=== PATIENT | female | born 1935 | race Caucasian/White ===

== ENCOUNTER 2017-08-29 09:42 | Inpatient (IN) | payer MEDICARE, OTHER ==
[~2017-08-29] VITALS: Ht 162.6 cm; Wt 102.1 kg
[2017-08-29] VITALS (15 sets, daily range): BP systolic 117–134; BP diastolic 57–75
[2017-08-29] MEDS ORDERED: IOPAMIDOL-370 100 ML VIAL IV ONE (10:46)
[2017-08-29] MEDS ORDERED: BIVALIRUDIN 250 MG/VIAL IV ONE (10:46)
[2017-08-29] MEDS ORDERED: LIDOCAINE PF 2% 5ML ABBOJECT ONE (10:46)
[2017-08-29] MEDS ORDERED: FENTANYL CITRATE PF 50 MCG/1 ML 2ML VIAL ONE (10:47)
[2017-08-29] MEDS ORDERED: MIDAZOLAM HCL 1 MG/ML 2ML VIAL ONE (10:47)
[2017-08-29] MEDS ORDERED: IOPAMIDOL-370 75 ML VIAL IV ONE (10:47)
[2017-08-29] MEDS ORDERED: LIDOCAINE HCL 2% 20ML ONE (10:48)
[2017-08-29] MEDS ORDERED: DOPAMINE HCL 400 MG/D5%-WATER 0 ML IV ONE (10:48)
[2017-08-29] MEDS ORDERED: CALC-1174 PO (11:09)
[2017-08-29] MEDS ORDERED: HUM10VIA6 SQ ×2 (11:09)
[2017-08-29] MEDS ORDERED: AMLO5TAB2 PO (11:09)
[2017-08-29] MEDS ORDERED: b12 PO (11:09)
[2017-08-29] MEDS ORDERED: ASPI-555 PO (11:09)
[2017-08-29] MEDS ORDERED: FURO20TA4 PO (11:09)
[2017-08-29] MEDS ORDERED: ATOR20TA65 PO (11:09)
[2017-08-29] MEDS ORDERED: LOSA100T29 PO (11:09)
[2017-08-29] MEDS ORDERED: CARV6.25 PO (11:09)
[2017-08-29] MEDS ORDERED: OMEP20CA10 PO (11:09)
[2017-08-29] MEDS ORDERED: FUROSEMIDE 10 MG/ML 4ML VIAL ONE ×2 (11:18)
[2017-08-29] MEDS ORDERED: MORPHINE SULFATE 10 MG/ML 1ML SYG ONE (11:20)
[2017-08-29] MEDS ORDERED: NITROGLYCERIN 50 MG/D5% WATER 250 BOT IV PRN (11:45)
[2017-08-29] MEDS ORDERED: HEPARIN 25000 UNITS/250 ML D5W 250 ML IV PRN (11:45)
[2017-08-29] MEDS ORDERED: GUAIFENESIN-DM 200/20 MG 10 ML PO PRN (13:45)
[2017-08-29] MEDS ORDERED: HYDRALAZINE HCL 20 MG/ML VIAL IV PRN (13:45)
[2017-08-29] MEDS ORDERED: MORPHINE SULFATE 2 MG/ML 1ML SYG IV PRN (13:45)
[2017-08-29] MEDS ORDERED: ACETAMINOPHEN-CODEINE 300/30MG TAB PO PRN ×2 (13:45)
[2017-08-29] MEDS ORDERED: LACTULOSE 20 GM/30 ML UDCUP PO PRN (13:45)
[2017-08-29] MEDS ORDERED: POTASSIUM CHLORIDE 20MEQ/100ML 100 ML IV PRN (13:45)
[2017-08-29] MEDS ORDERED: NITROGLYCERIN 0.4 MG SL TAB SL PRN (13:45)
[2017-08-29] MEDS ORDERED: MORPHINE SULFATE 4 MG/1ML SYG IV PRN (13:45)
[2017-08-29] MEDS ORDERED: LIDOCAINE HCL-MPF 1% 2ML VIAL IVP PRN (13:45)
[2017-08-29] MEDS ORDERED: ONDANSETRON HCL 4 MG/2 ML VIAL IV PRN (13:45)
[2017-08-29] MEDS ORDERED: ACETAMINOPHEN 325 MG TAB PO PRN ×2 (13:45)
[2017-08-29] MEDS ORDERED: POTASSIUM CHLORIDE 10% ELIXIR 20 MEQ/15 ML UDCUP PO PRN (13:45)
[2017-08-29] MEDS ORDERED: MAG HYDROX/AL HYDROX/SIMETH ES 30 ML SUSP UDCUP PO PRN (13:45)
[2017-08-29] MEDS ORDERED: INSULIN HUMULIN 70/30 100 UNIT/ML 3ML SQ SCH (16:30)
[2017-08-29] MEDS: INSULIN HUMULIN R 100 UNIT/ML 3ML SQ SCH ×2 (16:31→22:18)
[2017-08-29] MEDS: IPRATROPIUM 0.5 MG/2.5 ML INH IH SCH (18:05)
[2017-08-29] MEDS: TICAGRELOR 90 MG TABLET PO SCH (22:03)
[2017-08-29] MEDS: FAMOTIDINE/PF 20 MG/2 ML VIAL IV SCH (22:03)
[2017-08-29] MEDS: FUROSEMIDE 10 MG/ML 4ML VIAL IVP SCH (22:03)
[2017-08-29] MEDS: ATORVASTATIN CALCIUM 20 MG TABLET PO SCH (22:05)
[2017-08-29] MEDS: CARVEDILOL 6.25 MG TABLET PO SCH (22:05)
[2017-08-30] VITALS (24 sets, daily range): BP systolic 101–145; BP diastolic 45–82
[2017-08-30] MEDS: IPRATROPIUM 0.5 MG/2.5 ML INH IH SCH ×4 (00:38→17:58)
[2017-08-30 04:00] LABS: CREATININE 1.1 mg/dL (0.5-1.5); POTASSIUM 3.7 mmol/L (3.5-5.1)
[2017-08-30 05:38] LABS: MEAN CORPUSCULAR HEMOGLOBIN 29.4 pg (27.0-33.0); MEAN CORPUSCULAR HGB CONC 33.6 g/dL (32.0-36.0); MEAN CORPUSCULAR VOLUME 87.5 fL (79-99); PLATELET COUNT (AUTO) 228 K/uL (130-400); RED BLOOD CELL COUNT(AUTO) 4.11 MIL/uL (4.00-5.50); RED CELL DISTRIBUTION WIDTH 14.4 % (11.0-15.5)
[2017-08-30 06:14] LABS: B-TYPE NATRIURETIC PEPTIDE 1060 pg/mL (0-100)
[2017-08-30] MEDS ORDERED: LISINOPRIL 10 MG TABLET PO SCH (09:00)
[2017-08-30] MEDS: INSULIN HUMULIN R 100 UNIT/ML 3ML SQ SCH ×4 (09:00→21:00)
[2017-08-30] MEDS: INSULIN HUMULIN 70/30 100 UNIT/ML 3ML SQ SCH ×2 (09:01→17:21)
[2017-08-30] MEDS: TICAGRELOR 90 MG TABLET PO SCH ×2 (09:02→21:07)
[2017-08-30] MEDS: ASPIRIN 81MG TAB.CHEW PO SCH (09:02)
[2017-08-30] MEDS: CARVEDILOL 6.25 MG TABLET PO SCH ×2 (09:02→21:11)
[2017-08-30] MEDS: FAMOTIDINE/PF 20 MG/2 ML VIAL IV SCH ×2 (09:02→21:06)
[2017-08-30] MEDS: FUROSEMIDE 10 MG/ML 4ML VIAL IVP SCH ×2 (09:05→21:07)
[2017-08-30 11:37] LABS: HEMOGLOBIN A1C 6.3 % (4.0-6.0)
[2017-08-30 11:54] LABS: CREATINE KINASE MB 79.1 ng/mL (0.5-3.6)
[2017-08-30 11:59] LABS: TROPONIN I 24.77 ng/mL (0.00-0.06)
[2017-08-30] MEDS: ISOSORBIDE MONO 60 MG TAB.SR PO SCH (12:24)
[2017-08-30] MEDS: ATORVASTATIN CALCIUM 20 MG TABLET PO SCH (21:07)
[2017-08-30] MEDS: LISINOPRIL 10 MG TABLET PO SCH (21:08)
[2017-08-30] MEDS: ENOXAPARIN SODIUM 100 MG/1 ML SQ SCH (21:12)
[2017-08-31] VITALS (14 sets, daily range): BP systolic 93–122; BP diastolic 41–77
[2017-08-31] MEDS: IPRATROPIUM 0.5 MG/2.5 ML INH IH SCH ×4 (01:22→19:48)
[2017-08-31 03:35] LABS: HEMATOCRIT 34.1 % (36-48); MEAN CORPUSCULAR HEMOGLOBIN 29.3 pg (27.0-33.0); MEAN CORPUSCULAR HGB CONC 33.1 g/dL (32.0-36.0); MEAN CORPUSCULAR VOLUME 88.4 fL (79-99); PLATELET COUNT (AUTO) 212 K/uL (130-400); RED BLOOD CELL COUNT(AUTO) 3.86 MIL/uL (4.00-5.50); RED CELL DISTRIBUTION WIDTH 14.4 % (11.0-15.5); WHITE BLOOD COUNT (AUTO) 12.7 K/uL (4.8-10.8)
[2017-08-31 03:47] LABS: CREATININE 1.1 mg/dL (0.5-1.5); POTASSIUM 3.5 mmol/L (3.5-5.1)
[2017-08-31 03:55] LABS: B-TYPE NATRIURETIC PEPTIDE 348 pg/mL (0-100)
[2017-08-31] MEDS: INSULIN HUMULIN R 100 UNIT/ML 3ML SQ SCH ×4 (07:30→21:00)
[2017-08-31] MEDS: ISOSORBIDE MONO 60 MG TAB.SR PO SCH (08:53)
[2017-08-31] MEDS: TICAGRELOR 90 MG TABLET PO SCH ×2 (08:53→22:37)
[2017-08-31] MEDS: ASPIRIN 81MG TAB.CHEW PO SCH (08:53)
[2017-08-31] MEDS: INSULIN HUMULIN 70/30 100 UNIT/ML 3ML SQ SCH ×2 (08:53→17:16)
[2017-08-31] MEDS: CARVEDILOL 6.25 MG TABLET PO SCH ×2 (08:54→21:00)
[2017-08-31] MEDS: LISINOPRIL 10 MG TABLET PO SCH (08:54)
[2017-08-31] MEDS: FAMOTIDINE/PF 20 MG/2 ML VIAL IV SCH ×2 (08:58→22:37)
[2017-08-31] MEDS: FUROSEMIDE 10 MG/ML 4ML VIAL IVP SCH (08:58)
[2017-08-31] MEDS: ENOXAPARIN SODIUM 100 MG/1 ML SQ SCH ×2 (08:59→22:39)
[2017-08-31] MEDS: FUROSEMIDE 40 MG TABLET PO SCH (17:00)
[2017-08-31] MEDS ORDERED: LISINOPRIL 5 MG TABLET PO SCH (21:00)
[2017-08-31] MEDS: LISINOPRIL 5 MG TABLET PO SCH (21:00)
[2017-08-31] MEDS ORDERED: CARVEDILOL 12.5 MG TABLET PO SCH (21:00)
[2017-08-31] MEDS: ATORVASTATIN CALCIUM 20 MG TABLET PO SCH (22:38)
[2017-09-01] MEDS: IPRATROPIUM 0.5 MG/2.5 ML INH IH SCH ×4 (00:51→19:11)
[2017-09-01 03:59] VITALS: BP 114/63
[2017-09-01 05:00] LABS: MEAN CORPUSCULAR HGB CONC 33.9 g/dL (32.0-36.0); MEAN CORPUSCULAR VOLUME 88.4 fL (79-99); PLATELET COUNT (AUTO) 210 K/uL (130-400); RED BLOOD CELL COUNT(AUTO) 3.62 MIL/uL (4.00-5.50); RED CELL DISTRIBUTION WIDTH 14.5 % (11.0-15.5)
[2017-09-01 05:06] LABS: CREATININE 1.2 mg/dL (0.5-1.5); POTASSIUM 3.3 mmol/L (3.5-5.1)
[2017-09-01] MEDS: POTASSIUM CHLORIDE 20 MEQ ERTAB PO PRN ×3 (05:40→12:50)
[2017-09-01] MEDS: INSULIN HUMULIN R 100 UNIT/ML 3ML SQ SCH ×4 (05:58→21:00)
[2017-09-01] MEDS: INSULIN HUMULIN 70/30 100 UNIT/ML 3ML SQ SCH ×2 (06:26→17:52)
[2017-09-01 07:44] VITALS: BP 122/51
[2017-09-01] MEDS: LISINOPRIL 5 MG TABLET PO SCH ×2 (10:04→21:05)
[2017-09-01] MEDS: ASPIRIN 81MG TAB.CHEW PO SCH (10:04)
[2017-09-01] MEDS: ISOSORBIDE MONO 60 MG TAB.SR PO SCH (10:04)
[2017-09-01] MEDS: FAMOTIDINE/PF 20 MG/2 ML VIAL IV SCH ×2 (10:04→21:06)
[2017-09-01] MEDS: CARVEDILOL 6.25 MG TABLET PO SCH ×2 (10:05→21:06)
[2017-09-01] MEDS: FUROSEMIDE 40 MG TABLET PO SCH ×2 (10:05→17:51)
[2017-09-01 11:47] VITALS: BP 94/55
[2017-09-01 16:48] VITALS: BP 106/60
[2017-09-01 19:30] VITALS: BP 121/59
[2017-09-01] MEDS: ATORVASTATIN CALCIUM 20 MG TABLET PO SCH (21:06)
[2017-09-01 23:32] VITALS: BP 99/49
[2017-09-02] MEDS: IPRATROPIUM 0.5 MG/2.5 ML INH IH SCH ×4 (00:36→19:54)
[2017-09-02 03:57] VITALS: BP 102/50
[2017-09-02 04:46] LABS: POTASSIUM 3.5 mmol/L (3.5-5.1)
[2017-09-02] MEDS: POTASSIUM CHLORIDE 20 MEQ ERTAB PO PRN ×2 (05:42→11:09)
[2017-09-02] MEDS: INSULIN HUMULIN R 100 UNIT/ML 3ML SQ SCH ×4 (06:25→21:00)
[2017-09-02] MEDS: INSULIN HUMULIN 70/30 100 UNIT/ML 3ML SQ SCH ×2 (06:31→16:47)
[2017-09-02 07:45] VITALS: BP 123/51
[2017-09-02] MEDS: FAMOTIDINE/PF 20 MG/2 ML VIAL IV SCH ×2 (09:56→22:21)
[2017-09-02] MEDS: FUROSEMIDE 40 MG TABLET PO SCH ×2 (09:57→16:47)
[2017-09-02] MEDS: ASPIRIN 81MG TAB.CHEW PO SCH (09:57)
[2017-09-02] MEDS: CARVEDILOL 6.25 MG TABLET PO SCH ×2 (09:57→22:22)
[2017-09-02] MEDS: LISINOPRIL 5 MG TABLET PO SCH ×2 (09:57→22:21)
[2017-09-02] MEDS: ISOSORBIDE MONO 60 MG TAB.SR PO SCH (09:58)
[2017-09-02] MEDS: ENOXAPARIN SODIUM 40 MG/0.4 ML SYRINGE SQ SCH (10:31)
[2017-09-02 11:31] VITALS: BP 96/57
[2017-09-02 16:30] VITALS: BP 95/57
[2017-09-02 19:44] VITALS: BP 137/59
[2017-09-02] MEDS: ATORVASTATIN CALCIUM 20 MG TABLET PO SCH (22:21)
[2017-09-02 23:38] VITALS: BP 99/49
[2017-09-03] MEDS: IPRATROPIUM 0.5 MG/2.5 ML INH IH SCH ×3 (01:06→11:15)
[2017-09-03 03:54] VITALS: BP 92/59
[2017-09-03 04:48] LABS: CREATININE 1.1 mg/dL (0.5-1.5); POTASSIUM 3.9 mmol/L (3.5-5.1)
[2017-09-03] MEDS ORDERED: POTASSIUM CHLORIDE 10 MEQ/TAB.SA PO ONE ×4 (05:10→06:02)
[2017-09-03] MEDS: INSULIN HUMULIN R 100 UNIT/ML 3ML SQ SCH ×2 (05:54→11:30)
[2017-09-03] MEDS: INSULIN HUMULIN 70/30 100 UNIT/ML 3ML SQ SCH (06:11)
[2017-09-03 07:39] VITALS: BP 109/56
[2017-09-03] MEDS ORDERED: Isosorbide Mono 60 Mg Tab.sr PO (08:01)
[2017-09-03] MEDS ORDERED: FURO40TA7 PO (08:01)
[2017-09-03] MEDS: FAMOTIDINE/PF 20 MG/2 ML VIAL IV SCH (09:34)
[2017-09-03] MEDS: LISINOPRIL 5 MG TABLET PO SCH (09:34)
[2017-09-03] MEDS: ASPIRIN 81MG TAB.CHEW PO SCH (09:34)
[2017-09-03] MEDS: CARVEDILOL 6.25 MG TABLET PO SCH (09:34)
[2017-09-03] MEDS: ISOSORBIDE MONO 60 MG TAB.SR PO SCH (09:34)
[2017-09-03] MEDS: ENOXAPARIN SODIUM 40 MG/0.4 ML SYRINGE SQ SCH (09:35)
[2017-09-03] MEDS: FUROSEMIDE 40 MG TABLET PO SCH (09:35)
[2017-09-03 11:26] VITALS: BP 108/58
== END 2017-09-03 13:20 | disposition home or self-care (01) | DRG 280 ==
LOC: 2CH 10:40 → 2BH 17:46 → 2AH 08-31 13:00
PROVIDERS: ADMIT Internal Medicine; ATTEND Internal Medicine
PROC: 5A09357 Assistance with Respiratory Ventilation, Less than 24 Consecutive Hours, Continuous Positive Airway Pressure (ICD-10-PCS; 2017-08-29)
PROC: B2111ZZ Fluoroscopy of Multiple Coronary Arteries using Low Osmolar Contrast (ICD-10-PCS; principal; 2017-08-30)
PROC: B2151ZZ Fluoroscopy of Left Heart using Low Osmolar Contrast (ICD-10-PCS; 2017-08-30)
PROC: 4A023N7 Measurement of Cardiac Sampling and Pressure, Left Heart, Percutaneous Approach (ICD-10-PCS; 2017-08-30)
DX: I21.19 ST elevation (STEMI) myocardial infarction involving other coronary artery of inferior wall (principal); I50.43 Acute on chronic combined systolic (congestive) and diastolic (congestive) heart failure; J96.00 Acute respiratory failure, unspecified whether with hypoxia or hypercapnia; I13.0 Hypertensive heart and chronic kidney disease with heart failure and stage 1 through stage 4 chronic kidney disease, or unspecified chronic kidney disease; I25.10 Atherosclerotic heart disease of native coronary artery without angina pectoris; E11.22 Type 2 diabetes mellitus with diabetic chronic kidney disease; E66.01 Morbid (severe) obesity due to excess calories; E11.65 Type 2 diabetes mellitus with hyperglycemia; E78.5 Hyperlipidemia, unspecified; I25.5 Ischemic cardiomyopathy; J45.909 Unspecified asthma, uncomplicated; M19.90 Unspecified osteoarthritis, unspecified site; N18.9 Chronic kidney disease, unspecified; R04.0 Epistaxis; Z96.653 Presence of artificial knee joint, bilateral; I25.2 Old myocardial infarction; Z79.4 Long term (current) use of insulin; Z79.82 Long term (current) use of aspirin; Z79.899 Other long term (current) drug therapy; Z86.73 Personal history of transient ischemic attack (TIA), and cerebral infarction without residual deficits; Z68.38 Body mass index [BMI] 38.0-38.9, adult; Z91.040 Latex allergy status; Z91.048 Other nonmedicinal substance allergy status
CPT/HCPCS: 36415; 71045; 80048; 82550; 82553; 82948; 83036; 83874; 83880; 84484; 85027; 85730; 93005; 93458; 94640; 94660; 94664; A4344; C1894; J0583; J1265; J1644; J1650; J1815; J1940; J2001; J2250; J2270; J3010; J3490; Q9967